=== PATIENT | male | born 1975 | race Caucasian/White ===

== ENCOUNTER 2020-04-26 18:21 | Emergency (ER) | payer OTHER ==
[2020-04-26] MEDS ORDERED: HYDROmorphone 0.5 MG/0.5 ML SYRINGE ONE ×3 (18:32→21:03)
[2020-04-26] MEDS ORDERED: Ondansetron PF 4 MG/2 ML Vial ONE (18:32)
[2020-04-26 18:50] LABS: #Basophils 0.1 thou/uL (0.0-0.2); #Eosinphils 0.1 thou/uL (0.0-0.7); #Lymphocytes 1.2 thou/uL (1.20-3.40); #Monocytes 0.9 thou/uL (0.11-0.59); #Neutrophils 9.1 thou/uL (1.40-6.50); %Basophils 0.7 % (0.0-1.0); %Eosinophils 0.6 % (0.0-10.0); %Lymphocytes 10.3 % (21.0-51.0); %Monocytes 8.1 % (0.0-10.0); %Neutrophils 80.3 % (42.0-75.0); Mean Corpuscular HGB CONC 31.5 g/dL (32.0-36.0); Mean Corpuscular Hemoglobin 26.9 pg (27.0-31.0); Mean Corpuscular Volume 85.4 fL (78.0-98.0); Mean Platelet Volume 7.3 fL (7.4-10.4); Platelet Count 248 thou/uL (130-400); RBC Distribution Width 15.4 % (11.5-14.5); Red Blood Cell (RBC) Count 5.94 mill/uL (4.70-6.10); White Blood Cell (WBC) Count 11.3 thou/uL (4.8-10.8)
[2020-04-26 19:02] LABS: ALT (SGPT) 39 U/L (8-55); AST (SGOT) 26 U/L (5-34); Albumin 4.3 g/dL (3.5-5.0); Alkaline Phosphatase 104 U/L (40-110); Anion Gap 17 mmol/L (10-20); BUN (Urea Nitrogen) 18 mg/dL (8.9-20.6); Bilirubin, Total 0.3 mg/dL (0.2-1.2); Calc. Creatinine Clearance 0 mL/min (70-130); Calcium 9.4 mg/dL (7.8-10.44); Carbon Dioxide 24 mmol/L (22-29); Chloride 102 mmol/L (98-107); Globulin 3.8 g/dL (2.4-3.5); Glucose 109 mg/dL (70-105); Lipase 21 U/L (8-78); Potassium 4.2 mmol/L (3.5-5.1); Protein, Total 8.1 g/dL (6.0-8.3); Sodium 139 mmol/L (136-145)
[2020-04-26] MEDS ORDERED: Benzocaine 20% Spray 60 ML CAN ONE (19:17)
--- NOTE | 2020-04-26 19:51 | CT ---
CT ABDOMEN AND PELVIS WITHOUT CONTRAST 04/26/20 PROVIDED CLINICAL HISTORY: Abdominal pain. FINDINGS: The visualized lung bases are free of significant opacity. There is extensive peritoneal based calcification present presumably reflecting sequela of prior ethel tonitis. There are multiple prominently dilated loops of small bowel within the right mid abdomen and right lower quadrant. There is absence of normal appearing hepatic flexure and right colon with exte nsive postoperative change seen involving the regional small bowel. The colon is decompressed. The solid abdominal organs are suboptimally evaluated in the absence of IV contrast material, with a 2.1 cm mass-like focus of soft tissue density lateral to the right of midline to the pancreatic head. Extensive capsular calcification involving liver and spleen. There is a 4 mm nonobstructing inferior pole left renal calculus and a 4 mm nonobstructing inferior pole right renal calculus. There is no e vidence for ureteral or bladder calculi. There is no free fluid, inflammatory fat stranding or free air. The osseous structures demonstrate no concerning lytic or blastic lesions. IMPRESSION: 1. Findings compatible with small bowel obstruction, possibly at the site of an entero-enteric a nastomosis. 2. Bilateral nonobstructing renal calculi. 3. Possible mass or lymph node adjacent to the head of the pancreas. Correlation with prior imag ing is recommended to exclude an atypical appearance to the pancreatic head. In the absence of prior imaging, nonemergent follow-up CT abdomen utilizing pancreatic mass protocol is recommended. POS: KEVIN
== END 2020-04-26 21:23 | disposition short-term general hospital (02) ==
LOC: BURERS 18:21
DX: K56.609 Unspecified intestinal obstruction, unspecified as to partial versus complete obstruction (principal); I10 Essential (primary) hypertension; F41.9 Anxiety disorder, unspecified; F32.9 Major depressive disorder, single episode, unspecified; Z79.899 Other long term (current) drug therapy
CPT/HCPCS: 36415; 74176; 80053; 83690; 85025; 96374; 96375; 96376; J1170; J2405

== ENCOUNTER 2020-06-05 16:12 | Emergency (ER) | payer OTHER ==
[2020-06-05] MEDS ORDERED: Promethazine HCl 25 MG/ML VIAL ONE (16:25)
[2020-06-05] MEDS ORDERED: HYDROmorphone 0.5 MG/0.5 ML SYRINGE ONE ×3 (16:25→20:28)
[2020-06-05 16:51] LABS: #Eosinphils 0.1 thou/uL (0.0-0.7); #Lymphocytes 0.7 thou/uL (1.20-3.40); #Monocytes 0.6 thou/uL (0.11-0.59); #Neutrophils 5.9 thou/uL (1.40-6.50); %Basophils 0.3 % (0.0-1.0); %Eosinophils 0.9 % (0.0-10.0); %Monocytes 8.1 % (0.0-10.0); %Neutrophils 80.8 % (42.0-75.0); Hemoglobin 13.1 g/dL (14.0-18.0); Mean Corpuscular HGB CONC 31.7 g/dL (32.0-36.0); Mean Corpuscular Hemoglobin 27.1 pg (27.0-31.0); Mean Corpuscular Volume 85.5 fL (78.0-98.0); Mean Platelet Volume 7.1 fL (7.4-10.4); Platelet Count 195 thou/uL (130-400); RBC Distribution Width 14.9 % (11.5-14.5); Red Blood Cell (RBC) Count 4.82 mill/uL (4.70-6.10); White Blood Cell (WBC) Count 7.3 thou/uL (4.8-10.8)
[2020-06-05 17:08] LABS: ALT (SGPT) 31 U/L (8-55); AST (SGOT) 24 U/L (5-34); Albumin 3.8 g/dL (3.5-5.0); Alkaline Phosphatase 107 U/L (40-110); Anion Gap 13 mmol/L (10-20); BUN (Urea Nitrogen) 12 mg/dL (8.9-20.6); Bilirubin, Total 0.2 mg/dL (0.2-1.2); Calc. Creatinine Clearance 0 mL/min (70-130); Calcium 8.5 mg/dL (7.8-10.44); Carbon Dioxide 24 mmol/L (22-29); Chloride 106 mmol/L (98-107); Globulin 2.9 g/dL (2.4-3.5); Glucose 124 mg/dL (70-105); Potassium 3.9 mmol/L (3.5-5.1); Protein, Total 6.7 g/dL (6.0-8.3); Sodium 139 mmol/L (136-145)
--- NOTE | 2020-06-05 17:36 | CT ---
CT ABDOMEN AND PELVIS WITH CONTRAST: 06/05/[address] of the abdomen and pelvis was done using IV contrast but no oral in this patient with a his tory of Crohn's disease and multiple prior surgeries. The lung bases are clear except for some minor scarring and dependent atelectasis. The liver, spleen, pancreas, adrenal glands and abdominal aorta showed no acute findings. The kidneys have nonobstructi ng calculi bilaterally but no sign of obstruction or mass. The main finding on the study are dilated fluid filled loops of mid small bowel measuring in the 3 to 4 cm width range. There may be some slight thickening of the burgos, but not much. The differential l ies between a partial small bowel obstruction and enteritis. The remaining colon shows no dilation. T he burgos of the colon have some very mild thickening that is probably from chronic inflammatory disea se. There are no inflammatory changes around bowel of concern. No free air or free fluid was detecte d. CT of the pelvis shows no pelvic masses, fluid collections or inflammatory changes. Fat filled inguin al hernias are present bilaterally, right more than left. There are numerous peritoneal calcification s throughout the entire abdomen. This could be from prior inflammatory episodes, but I also have hear d a history of a prior perforation and barium leakage and this could be related to that. This is a lo ngstanding issue as well. IMPRESSION: 1. Mildly dilated loops of mid small bowel as stated above. Partial small bowel obstruction vers us enteritis. 2. Mild chronic inflammatory changes in the burgos of the colon. 3. Nonobstructing bilateral renal calculi. 4. Peritoneal calcifications, longstanding and not a current concern. Preliminary report called to [facility] in ER at 1718 on 06/05/20. POS: HOME
[2020-06-05 23:05] LABS: SARS-CoV-2 NAA Rapid Test Not Detected (NotDetected)
== END 2020-06-05 22:42 | disposition short-term general hospital (02) ==
LOC: BURERS 16:12
DX: K56.600 Partial intestinal obstruction, unspecified as to cause (principal); Z20.822 Contact with and (suspected) exposure to COVID-19; Z79.899 Other long term (current) drug therapy; I10 Essential (primary) hypertension; F17.220 Nicotine dependence, chewing tobacco, uncomplicated
CPT/HCPCS: 0240U; 36415; 74177; 80053; 83605; 84484; 85025; 93005; 94760; 96365; 96375; 96376; J1170; J2550

== ENCOUNTER 2021-03-21 11:11 | Emergency (ER) | payer OTHER ==
[2021-03-21] MEDS ORDERED: Fentanyl 100 MCG/2 ML VIAL ONE (11:28)
[2021-03-21] MEDS ORDERED: Ondansetron PF 4 MG/2 ML Vial ONE (11:28)
[2021-03-21 11:38] LABS: #Basophils 0.1 thou/uL (0.0-0.2); #Monocytes 0.6 thou/uL (0.11-0.59); #Neutrophils 9.4 thou/uL (1.40-6.50); %Basophils 0.6 % (0.0-1.0); %Eosinophils 0.1 % (0.0-10.0); %Lymphocytes 9.4 % (21.0-51.0); %Monocytes 5.3 % (0.0-10.0); %Neutrophils 84.6 % (42.0-75.0); Hemoglobin 15.4 g/dL (14.0-18.0); Mean Corpuscular HGB CONC 33.7 g/dL (32.0-36.0); Mean Corpuscular Hemoglobin 27.7 pg (27.0-31.0); Mean Corpuscular Volume 82.4 fL (78.0-98.0); Mean Platelet Volume 6.4 fL (7.4-10.4); Platelet Count 252 thou/uL (130-400); RBC Distribution Width 15.2 % (11.5-14.5); Red Blood Cell (RBC) Count 5.55 mill/uL (4.70-6.10); White Blood Cell (WBC) Count 11.1 thou/uL (4.8-10.8)
[2021-03-21 11:49] LABS: ALT (SGPT) 22 U/L (8-55); AST (SGOT) 25 U/L (5-34); Albumin 4.4 g/dL (3.5-5.0); Alkaline Phosphatase 89 U/L (40-110); Anion Gap 23 mmol/L (10-20); BUN (Urea Nitrogen) 14 mg/dL (8.9-20.6); Bilirubin, Total 0.6 mg/dL (0.2-1.2); Calc. Creatinine Clearance 0 mL/min (70-130); Calcium 9.5 mg/dL (7.8-10.44); Carbon Dioxide 20 mmol/L (22-29); Chloride 99 mmol/L (98-107); Globulin 3.4 g/dL (2.4-3.5); Glucose 123 mg/dL (70-105); Lipase 12 U/L (8-78); Potassium 3.9 mmol/L (3.5-5.1); Protein, Total 7.8 g/dL (6.0-8.3); Sodium 138 mmol/L (136-145)
[2021-03-21] MEDS ORDERED: Lorazepam 2 MG/ML VIAL ONE (12:19)
[2021-03-21] MEDS ORDERED: methylPREDNISolone Sod Succ/PF 125 MG/2 ML VIAL ONE (12:45)
[2021-03-21] MEDS ORDERED: Famotidine In NaCl 20 mg/50 ml Premix Bag ONE (12:45)
== END 2021-03-21 15:07 | disposition home or self-care (01) ==
LOC: BURERS 11:11
DX: K50.90 Crohn's disease, unspecified, without complications (principal); R07.89 Other chest pain; I10 Essential (primary) hypertension; F17.220 Nicotine dependence, chewing tobacco, uncomplicated
CPT/HCPCS: 36415; 71045; 74177; 80053; 83690; 84484; 85025; 93005; 94760; 96365; 96375; J2060; J2405; J2930; J3010